=== PATIENT | female | born 1935 | race Caucasian/White ===

== ENCOUNTER 2021-09-09 05:51 | Day surgery (SDC) | payer MEDICARE, OTHER ==
[2021-09-08 14:49] LABS: BASOPHILS % (AUTO) 0.7 % (0-1); EOSINOPHILS # (AUTO) 0.1 X10'3 (0-0.9); EOSINOPHILS % (AUTO) 1.8 % (0-6); HEMATOCRIT 39.3 % (35.0-45.0); HEMOGLOBIN 13.3 g/dl (12.0-16.0); LYMPHOCYTES # (AUTO) 1.7 X10'3 (1.1-4.8); LYMPHOCYTES % (AUTO) 24.9 % (21-51); MEAN CORPUSCULAR HGB CONC 33.9 g/dL (33.0-36.5); MEAN CORPUSCULAR VOLUME 94.5 FL (78-98); MEAN PLATELET VOLUME 9.9 FL (7.4-10.4); MONOCYTES # (AUTO) 0.6 X10'3 (0-0.9); MONOCYTES % (AUTO) 9.3 % (2-12); NEUTROPHILS # (AUTO) 4.2 X10'3 (1.8-7.7); NEUTROPHILS % (AUTO) 63.3 % (42-75); PLATELET COUNT 177 X10'3 (140-440); RED BLOOD COUNT 4.16 X10'6 (4.20-5.60); RED CELL DISTRIBUTION WIDTH 13.4 % (11.5-14.5); WHITE BLOOD COUNT 6.7 X10'3 (4.5-11.0)
[~2021-09-09] VITALS: Ht 165.1 cm; Wt 99.2 kg
[2021-09-09] VITALS (11 sets, daily range): BP systolic 109–196; BP diastolic 40–76
[~2021-09-09 05:51] MED LIST: ACET-1008 PO; IMO2C PO; LEV250T PO; LOVA20TA2 PO; NEPHC PO; NORCO10T PO; ZOF4I IV; [UNRECOGNIZED DRUG - CODE] PO; [UNRECOGNIZED DRUG - CODE] SQ
[2021-09-09] MEDS ORDERED: LOSA100T57 PO (06:19)
[2021-09-09] MEDS ORDERED: HYDR25TA5 PO (06:19)
[2021-09-09] MEDS ORDERED: INSU3INS SQ (06:19)
[2021-09-09] MEDS ORDERED: LORazepam 0.5 MG tablet PO PRN (06:25)
[2021-09-09] MEDS ORDERED: diphenhydrAMINE 25mg capsule PO PRN (06:25)
[2021-09-09] MEDS ORDERED: normal saline 1,000 ML IV SCH (06:25)
[2021-09-09 06:58] LABS: ALBUMIN 3.5 G/DL (3.4-5.0); ANION GAP 5 (8-16); BLOOD UREA NITROGEN 24 MG/DL (7-18); BUN/CREATININE RATIO 18.9 (6.6-38.0); CALCIUM 9.2 MG/DL (8.5-10.1); CHLORIDE 105 MMOL/L (99-107); CREATININE 1.27 MG/DL (0.40-0.90); GLUCOSE 154 MG/DL (70-104); POTASSIUM 3.4 MMOL/L (3.5-5.1); SODIUM 141 MMOL/L (135-145); TOTAL CARBON DIOXIDE 30.8 MMOL/L (24-32); eGFR 40 ML/MIN
[2021-09-09 07:02] LABS: APTT 25 SECONDS (22-32)
[2021-09-09] MEDS ORDERED: LIDOcaine/PRILOcaine 5gm cream TP ONE (07:10)
[2021-09-09] MEDS ORDERED: nitroGLYCERIN-Tridil 50MG/D5W 250 ML IV ONE (07:21)
[2021-09-09] MEDS ORDERED: iohexol 350 MG/ML 50ML vial IV ONE (07:22)
[2021-09-09] MEDS ORDERED: iohexol 350MG/ML 100ml bottle IV ONE (07:22)
[2021-09-09] MEDS ORDERED: verapamil 2.5 mg/ml inj IV ONE (07:22)
[2021-09-09] MEDS ORDERED: heparin 1,000unit/ml 10ml vial 10 ML ONE (07:22)
[2021-09-09] MEDS ORDERED: LIDOcaine 1% (10mg/ml)w/preservative injection 20ml MDV ONE (07:22)
[2021-09-09] MEDS ORDERED: midazolam 1 mg/ML 2ml injection ONE (07:22)
[2021-09-09] MEDS ORDERED: fentaNYL/PF 50MCG/1 ML 2ML syringe ONE (08:17)
[2021-09-09] MEDS ORDERED: diltiazem 5mg/ml 5ml inj. IV ONE (08:41)
[2021-09-09] MEDS ORDERED: potassium Cl 20 mEq SR tablet PO ONE (09:25)
[2021-09-09] MEDS ORDERED: hydrALAZINE 20mg/ml inj. IV PRN (09:25)
[2021-09-09] MEDS ORDERED: HYDROchlorothiazide 25mg tablet PO SCH (09:43)
[2021-09-09] MEDS ORDERED: losartan 50mg tablet PO SCH (09:43)
[2021-09-09 10:05] LABS: ISTAT HGB ART 12.9 g/dl (12.0-16.0); ISTAT Hct ART 38 %PCV (35-48); ISTAT O2 SATURATION ARTERIAL 96 % (95-98); ISTAT SOURCE ART
[2021-09-09 11:30] LABS: ISTAT Hct MIX 36 %PCV (35-48); ISTAT O2 SATURATION MIX VENOUS 75 % (60-80); ISTAT SOURCE VEN
[2021-09-09] MEDS ORDERED: insulin glargine (Lantus) pen - multi-dose SQ SCH (21:00)
== END 2021-09-09 14:00 | disposition home or self-care (01) ==
LOC: SSTAY O 05:51
PROVIDERS: ATTEND Internal Medicine Cardiovascular Disease
DX: R94.39 Abnormal result of other cardiovascular function study (principal); R53.83 Other fatigue; I25.10 Atherosclerotic heart disease of native coronary artery without angina pectoris; E78.5 Hyperlipidemia, unspecified; G47.30 Sleep apnea, unspecified; E66.9 Obesity, unspecified; Z68.36 Body mass index [BMI] 36.0-36.9, adult; E11.22 Type 2 diabetes mellitus with diabetic chronic kidney disease; I12.9 Hypertensive chronic kidney disease with stage 1 through stage 4 chronic kidney disease, or unspecified chronic kidney disease; N18.9 Chronic kidney disease, unspecified; E11.40 Type 2 diabetes mellitus with diabetic neuropathy, unspecified; E11.319 Type 2 diabetes mellitus with unspecified diabetic retinopathy without macular edema; E55.9 Vitamin D deficiency, unspecified; Z85.3 Personal history of malignant neoplasm of breast; Z90.11 Acquired absence of right breast and nipple; Z90.49 Acquired absence of other specified parts of digestive tract; Z98.890 Other specified postprocedural states; Z98.41 Cataract extraction status, right eye; Z98.42 Cataract extraction status, left eye; Z87.891 Personal history of nicotine dependence; Z82.49 Family history of ischemic heart disease and other diseases of the circulatory system; Z83.3 Family history of diabetes mellitus; Z80.8 Family history of malignant neoplasm of other organs or systems
CPT/HCPCS: 36415; 76937; 80048; 82803; 82948; 85014; 85025; 85610; 85730; 93005; 93460; 99152; C1751; C1769; J1644; J2250; J3010; J3490; J7030; Q0163; Q9967; 93458; 99153; A4620; A5120; A6258; J1815